=== PATIENT | male | born 1995 | race Two or more races ===

== ENCOUNTER 2023-08-05 22:10 | Emergency (ER) | payer MEDICAID ==
[~2023-08-05] VITALS: Ht 175.3 cm; Wt 104.5 kg
[2023-08-05 22:13] VITALS: BP 122/68; PULSE 65; RESP 16; TEMP 98.2
[2023-08-05] MEDS ORDERED: IBUP-1554 PO (23:33)
[2023-08-05] MEDS ORDERED: AMOX1TAB16 PO (23:33)
[2023-08-05] MEDS ORDERED: ACET-2080 PO (23:33)
[2023-08-05] MEDS: IBUPROFEN 600 MG TABLET PO ONE (23:42)
[2023-08-05] MEDS: AMOX TR/POT CLAV 875 MG/125 MG TABLET PO ONE (23:42)
== END 2023-08-06 00:29 | disposition home or self-care (01) ==
LOC: EMS 22:23
DX: S01.511A Laceration without foreign body of lip, initial encounter (principal); V19.88XA Pedal cyclist (driver) (passenger) injured in other specified transport accidents, initial encounter; Y93.89 Activity, other specified; Y92.89 Other specified places as the place of occurrence of the external cause; Y99.8 Other external cause status
CPT/HCPCS: 99283

== ENCOUNTER 2023-08-19 22:29 | Emergency (ER) | payer MEDICAID ==
[~2023-08-19] VITALS: Ht 175.3 cm; Wt 104.5 kg
[~2023-08-19 22:29] MED LIST: ACET-2080 PO; AMOX1TAB16 PO; IBUP-1554 PO
[2023-08-19 22:45] VITALS: BP 125/66; PULSE 76; RESP 16; TEMP 97.9
[2023-08-20] MEDS: ACETAMINOPHEN 500 MG TABLET PO ONE (00:42)
[2023-08-20] MEDS ORDERED: ACET-3385 PO (01:29)
== END 2023-08-20 01:58 | disposition home or self-care (01) ==
LOC: EMS 22:30
DX: S00.83XA Contusion of other part of head, initial encounter (principal); W19.XXXA Unspecified fall, initial encounter; Y93.89 Activity, other specified; Y92.89 Other specified places as the place of occurrence of the external cause; Y99.8 Other external cause status
CPT/HCPCS: 70450; 70486; 99284